=== PATIENT | female | born 1995 | race Caucasian/White ===

== ENCOUNTER 2020-06-16 11:14 | Outpatient (REF) | payer OTHER, SELFPAY ==
[2020-06-16 14:43] LABS: MANUAL DIFF FLAG NO
[2020-06-16 14:48] LABS: Basophils Percent Auto 0.6 % (0-2); Eosinophils Absolute Auto 0.1 X10*3/uL (0.0-0.4); Eosinophils Percent Auto 1.6 % (0-4); Hematocrit 39.3 % (37-47); Imm Gran Abs Auto 0.01 X10*3/uL (0.00-0.03); Imm Gran Pct Auto 0.2 % (0.0-0.4); Lymphocytes Absolute Auto 2.2 X10*3/uL (1.2-4.9); Lymphocytes Percent Auto 42.9 % (20-40); Mean Corpuscular HGB Conc 33.1 g/dl (31.0-35.0); Mean Corpuscular Hemoglobin 30.8 pg (27.0-33.0); Mean Corpuscular Volume 93.1 fL (80-98); Mean Platelet Volume 10.2 fL (9.4-12.3); Monocytes Absolute Auto 0.5 X10*3/uL (0.1-1.2); Monocytes Percent Auto 9.1 % (2-11); Neutrophils Absolute Auto 2.3 X10*3/uL (2.0-8.3); Neutrophils Percent Auto 45.6 % (45-73); Platelet Count 355 X10*3/uL (160-400); Red Blood Count 4.22 X10*6/uL (4.20-5.50); Red Cell Distribution Width 12.3 % (11.0-16.0)
[2020-06-16 15:26] LABS: Alanine Aminotransferase 12 U/L (0-31); Aspartate Amino Transferase 17 U/L (5-31); Cholesterol 182 mg/dL; Glucose Fasting 82 mg/dL (60-99); HDL Cholesterol 77 mg/dL; LDL Cholesterol Calculated 93 mg/dl; Triglycerides 60 mg/dL
[2020-06-16 15:33] LABS: Vitamin D 25-OH Total 11.9 ng/mL (>30)
== END 2020-06-16 11:15 | disposition home or self-care (01) ==
LOC: HO.HMGCLDS 11:14
PROVIDERS: PCP Internal Medicine; Visit Provider Internal Medicine
DX: Z00.00 Encounter for general adult medical examination without abnormal findings (principal)
CPT/HCPCS: 36415; 80061; 82306; 82947; 84450; 84460; 85025

== ENCOUNTER 2021-01-28 07:00 | Outpatient (RCR) | payer OTHER, SELFPAY ==
--- NOTE | 2020-12-22 13:55 | MHC.PT.EP ---
[facility] [place] Office [place] [facility] [place] Office [address] Cec[address]oya [address] [phone] F: [phone] F: [phone] F: [phone] F: [phone] Physical Therapy Plan of Care Date of Evaluation: Date of Surgery: Diagnosis: low back pain Assessment: Patient is a 25 year old R handed female who presents with s/s consistent with low back pain. 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 Patient past medical history includes history of a back injury 7 years ago, R knee scope 13 years ago. Current impairments include pain, ROM, strength, activity tolerance and functional mobility. Functional limitations include decreased ability to walk, stand, transfer, sports, and perform weight bearing activities.. Patient is motivated with good rehab potential. Skilled PT will address impairments and functional limitations in order to achieve goals. Frequency and Duration: The patient will be seen 1x/week for 5 weeks Short Term Goals: I with HEP - 2 weeks Symmetrical AROM rotation with no ERP - 3 weeks Jail Goals: Able to participate in all rec activities pain free - 5 weeks Oswestry 8% or less - 5 weeks Treatment Plan: Modalities to reduce pain, spasms and effusion. Manual therapy to restore motion and function. Therapeutic exercise to improve strength and flexibility. Neuromuscular re-education for posture and balance. Therapeutic activities to return to functional activities of daily living. Electronically signed by: Mohit Geiger, PT Please sign and return to therapist. Thank you for your referral.
--- NOTE | 2021-03-12 10:43 | MHC.PT.DC ---
[facility] [place] Office [place] Office [place] Office [address] Alvaro Loya [address] [phone] F: [phone] F: [phone] F: [phone] F: [phone] Physical Therapy Discharge Report Diagnosis: low back pain Date of Surgery: Date of Evaluation: 12/22/20 Date of Discharge: 01/31/21 Treatments to Date: 4 Cancellations to Date: 0 No Shows to Date: 0 Discharge Status: Independent with HEP Discharge Summary: 01/28/21: pt has met all goals and is I with HEP. asymptomatic overall. we reviewed updated HEP and we will d/c to HEP at this time. Patient is a 25 year old R handed female who presents with s/s consistent with low back pain. 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 Patient past medical history includes history of a back injury 7 years ago, R knee scope 13 years ago. Current impairments include pain, ROM, strength, activity tolerance and functional mobility. Functional limitations include decreased ability to walk, stand, transfer, sports, and perform weight bearing activities.. Patient is motivated with good rehab potential. Skilled PT will address impairments and functional limitations in order to achieve goals. Electronically signed by: Mohit Geiger, PT Please sign and return to therapist. Thank you for your referral.
== END 2021-03-12 10:44 | disposition home or self-care (01) ==
LOC: HO.PTCHIC 07:00
PROVIDERS: PCP Internal Medicine; Visit Provider Internal Medicine
DX: M54.50 Low back pain, unspecified (principal)
CPT/HCPCS: 97110; 97140; 97161

== ENCOUNTER 2021-06-17 10:36 | Outpatient (REF) | payer OTHER, SELFPAY ==
[2021-06-17 14:23] LABS: Alanine Aminotransferase 13 U/L (0-31); Anion Gap 12 (12-20); Aspartate Amino Transferase 12 U/L (5-31); Blood Urea Nitrogen 13 mg/dL (9-16); Carbon Dioxide 25 mmol/L (22-29); Chloride 105 mmol/L (96-108); Cholesterol 210 mg/dL; Estimated Glomerular Filt Rate > 60; Glucose Fasting 85 mg/dL (60-99); HDL Cholesterol 79 mg/dL; LDL Cholesterol Calculated 123 mg/dl; Potassium 5.2 mmol/L (3.3-5.1); Sodium 137 mmol/L (135-145); Triglycerides 40 mg/dL
[2021-06-17 14:35] LABS: Vitamin D 25-OH Total 13.2 ng/mL (>30)
== END 2021-06-17 10:37 | disposition home or self-care (01) ==
LOC: HO.HMGCLDS 10:36
PROVIDERS: PCP Internal Medicine; Visit Provider Internal Medicine
DX: Z00.00 Encounter for general adult medical examination without abnormal findings (principal); E55.9 Vitamin D deficiency, unspecified
CPT/HCPCS: 36415; 80048; 80061; 82306; 84450; 84460

== ENCOUNTER 2021-11-02 09:48 | Outpatient (REF) | payer OTHER, SELFPAY ==
[2021-11-02 11:32] LABS: Potassium 4.6 mmol/L (3.3-5.1)
[2021-11-02 12:06] LABS: Vitamin D 25-OH Total 68.3 ng/mL (>30)
== END 2021-11-02 09:49 | disposition home or self-care (01) ==
LOC: HO.HMGCLDS 09:48
PROVIDERS: PCP Internal Medicine; Visit Provider Internal Medicine
DX: E55.9 Vitamin D deficiency, unspecified (principal); E87.5 Hyperkalemia
CPT/HCPCS: 36415; 82306; 84132

== ENCOUNTER 2021-12-31 09:25 | Outpatient (REF) | payer OTHER, SELFPAY ==
[2021-12-31 10:09] LABS: Binax Internal Control QC Valid; Binax Now Covid-19 Ag Positive (Negative)
== END 2021-12-31 09:26 | disposition home or self-care (01) ==
LOC: HO.HMGCLDS 09:25
PROVIDERS: Visit Provider Nurse Practitioner Family
DX: Z20.822 Contact with and (suspected) exposure to COVID-19 (principal); J06.9 Acute upper respiratory infection, unspecified
CPT/HCPCS: 87811; C9803

== ENCOUNTER 2022-06-21 08:45 | Outpatient (REF) | payer OTHER, SELFPAY ==
[2022-06-21 12:28] LABS: Alanine Aminotransferase 9 U/L (0-31); Aspartate Amino Transferase 12 U/L (5-31); Cholesterol 186 mg/dL; Glucose Fasting 85 mg/dL (60-99); HDL Cholesterol 72 mg/dL; LDL Cholesterol Calculated 102 mg/dl; Triglycerides 63 mg/dL
== END 2022-06-21 08:46 | disposition home or self-care (01) ==
LOC: HO.HMGCLDS 08:45
PROVIDERS: PCP Internal Medicine; Visit Provider Internal Medicine
DX: Z00.00 Encounter for general adult medical examination without abnormal findings (principal)
CPT/HCPCS: 36415; 80061; 82306; 82947; 84450; 84460

== ENCOUNTER 2023-08-31 09:58 | Outpatient (AMB) | payer OTHER, SELFPAY ==
--- NOTE | 2023-08-31 10:42 | MHC.PC.OV ---
Vital Signs 08/31/23 10:48 Height 5 ft 2 in Weight 135 lb BMI 24.7 BP 112/70 Blood Pressure Location Rt brachial Position Sitting Pulse 60 Pulse Source Pulse Oximeter Pulse Oximetry (%) 99 Oxygen Delivery Method Room Air Intake Visit Reasons: Annual PE Intake Note: Pt is here today for her PE: last papsmear 06/30/22 Allergies No Known Allergies Allergy (Verified 08/31/23 11:03) Medication List - Last Reconciled 08/31/23 by Meredith Hoffmann MD levonorgestrel (Liletta) intrauterine multivitamin 1 tab PO DAILY Tobacco use date assessed: 08/31/23 Dental Screening Dental Screen Date: 08/31/23 Did you have a dental visit in the last 12 months?: Yes Did you have a dental problem in the last 6 months where you did not have access to dental care?: Yes Was dental information given to patient?: Patient has dentist HPI Annual PE HPI Details 28-year-old lady here today for physical exam. She sees [facility] in [place] for her routine Pap and pelvic exam, last Pap smear was done [id number] with negative findings. Patient is currently on Liletta IUD inserted in 2019, currently being followed at [facility] Has been few no complaints at present time. [facility]LY [facility], [facility] Medical History Adult general medical exam Vitamin D deficiency History of dog bite History of meniscal tear Fx. left wrist Partial tear of right hamstring Surgical History (Updated 08/31/23 @ 11:21 by Meredith Hoffmann MD) H/O colposcopy with cervical biopsy History of surgery on left wrist Hx of wisdom tooth extraction Hx of arthroscopy Family History Mother Hypertension Substance use disorder Paternal Grandmother Brain cancer Maternal Grandmother Diabetes mellitus Social History Housing: House Alcohol intake: current Patient Tobacco Use Status: Never used Tobacco e-Cigarette/Vaping Use: Never Used service: No Current occupational status: employed Cognitive needs: No Hearing needs: No Vision needs: No Female Reproductive History Menstrual control method: progestin IUCD Date of last pap smear: 06/30/22 Other: Goes to [facility] [place] [facility] for her routine Pap and pelvic Questionnaire PHQ-9 Over the last 2 weeks, how often have you been bothered by any of the following problems? 1. Little interest or pleasure in doing things: not at all 2. Feeling down, depressed, or hopeless: not at all 3. Trouble falling or staying asleep, or sleeping too much: several days 4. Feeling tired or having little energy: not at all 5. Poor appetite or overeating: several days 6. Feeling bad about yourself - or that you are a failure or have let yourself or your family down: not at all 7. Trouble concentrating on things, such as reading the newspaper or watching television: not at all 8. Moving or speaking so slowly that other people could have noticed. Or the opposite - being so fidgety or restless that you have been moving around a lot more than usual: not at all 9. Thoughts that you would be better off or of hurting yourself in some way: not at all Total score: 2 Depression Screening Interpretation: Negative Depression Screening Done: Yes 92222 - PHQ-9 Billing: Yes Source: Developed by Drs. Brayden Stewart, Ai Khan, Misael Gong and colleagues, with an educational manuel from [employer]. Thrive Questionnaire Date Thrive assessed: 08/31/23 I am a: Patient What is your living situation today?: I have a steady place to live Within the past 12 months, did the food you bought not last and you didn't have the money to get more?: Never true Within the past 12 months, did you worry whether your food would run out before you got money to buy more?: Never true Do you have trouble paying for medicines?: No Do you have trouble getting transportation to medical appointments?: No Do you have trouble paying your heating and electricity bill?: No Do you have trouble taking care of your child, family member or friend?: No Do you have trouble with day-to-day activities such as bathing, preparing meals, shopping, managing finances, etc.?: No Are you currently unemployed and looking for a job?: No Are you interested in more education?: No Please select the resources that you would like help with: None THRIVE Score: 0 AUDIT C Alcohol Use Questionnaire (AUDIT-C) 1. How often do you have a drink containing alcohol?: 2-3 times a week 2. How many drinks containing alcohol do you have on a typical day when you are drinking?: 1 or 2 3. How often do you have six or more drinks on one occasion?: Never Total Score: 3 ELIZABETH-7 AMB Questionnaire ELIZABETH-7 Date ELIZABETH - 7 assessed: 08/31/23 Feeling nervous, anxious, or on edge: 1 = Several days Not being able to stop or control worryin = Several days Worrying too much about different things: 1 = Several days Trouble relaxin = Not at all Being so restless that it is hard to sit still: 0 = Not at all Becoming easily annoyed or irritable: 1 = Several days Feeling afraid as if something awful might happen: 0 = Not at all Total ELIZABETH-7 score (0-4 normal; 5-9 mild; 10-14 moderate; 15-21 severe): 4 Source: Developed by Drs. Brayden Stewart, Ai Khan, Misael Gong and colleagues, with an educational manuel from [employer]. ELIZABETH-7 Assessment Billing ELIZABETH-7 Assessment Tool: ELIZABETH-7 Assessment 37298 Review of Systems Const Denies body aches, Denies fatigue, Denies fever(s), Denies headache(s) and Denies weakness Eyes Denies change in vision, Denies eye discharge and Denies itchy eyes ENT Denies dizziness, Denies headache(s), Denies nasal congestion, Denies nasal discharge and Denies sore throat Card Denies chest pain, Denies lightheadedness, Denies palpitations and Denies dyspnea Resp Denies chest congestion, Denies cough, Denies dyspnea and Denies wheezing GI Denies abdominal pain, Denies change in bowel habits and Denies heartburn Details: Occasional postcoital bleeding, followed by OBGYN, negative colposcopy done recently Denies urinary frequency, Denies dysuria and Denies urinary urgency Musc Reports no additional complaints Skin/Breast Denies lesions and Denies rash Neuro Denies dizziness, Denies headache(s) and Denies weakness Psych Reports no additional complaints Endo Denies fatigue, Denies polydipsia, Denies polyuria and Denies palpitations Donovan/Lymph Denies easy bruising Aller/Immun Denies itchy eyes, Denies seasonal rhinorrhea and Denies wheezing Physical exam (Primary Care) Vital Signs: Last Vital Signs Pulse 60 08/31/23 10:48 BP 112/70 08/31/23 10:48 Pulse Ox 99 08/31/23 10:48 Oxygen Delivery Method Room Air 08/31/23 10:48 BMI result Body Mass Index 24.7 Tobacco/Smoking Status: Tobacco use Status Tobacco use date assessed 08/31/23 08/31/23 10:53 Patient Tobacco Use Status Never used Tobacco 08/31/23 10:42 e-Cigarette/Vaping Use Never Used 08/31/23 10:42 PHQ-9: PHQ-9 Score PHQ-9: Total score 3 08/31/23 11:10 Depression Screening Interpretation: Negative Thrive Assessment: Date of Thrive Assessment Date Thrive assessed 08/31/23 08/31/23 10:53 Advance Care Planning discussion: Completed/Scanned Date of discussion: 08/31/23 Who was present: Patient Forms completed: Health Care Proxy Time spent: 16-45 minutes Actual minutes spent: 16 Const General: cooperative, healthy appearing, comfortable and no acute distress Nutritional Appearance: average body habitus Orientation/consciousness: patient oriented x3 HENMT Head: Yes normocephalic and Yes atraumatic Ears: hearing grossly normal bilaterally, TM's normal bilaterally and EAC's normal General nose exam: Normal external nose present Face and sinus: Yes face symmetric Mouth: Normal oral and palatal mucosa present, tongue normal, oropharynx normal and moist mucous membranes Eyes General: appearance normal, both eyes and all related structures Neck Neck: Yes full ROM, Yes no lymphadenopathy and Yes supple Thyroid: Thyroid normal Chest Chest palpation & inspection: normal inspection of the chest Breast/axilla palpation: normal palpation of the breasts and normal palpation of the axillae Resp Effort & Inspection: normal respiratory effort and able to speak in complete sentences Auscultation: clear to auscultation bilaterally Cardio Palpation: normal PMI Rate: regular rate Rhythm: regular rhythm Heart sounds: S1 normal heart sound present, S2 normal heart sound present and no murmurs GI Inspection: Yes normal to inspection Palpation (GI): Soft to palpation, nontender, no guarding and no masses Auscultation: normal bowel sounds General: Yes no CVA tenderness and Yes deferred (utd with her pap / pelvic exam) Back/Spine/Pelvis Back: no CVA tenderness and No back tenderness Cervical Spine: cervical ROM normal Thoracic/Lumbar Spine: thoracic and lumbar spine normal to inspection Skin Other: Hyperpigmented slightly raised lesion on upper back Neuro General: patient oriented x3, gait normal, tone normal, moves all extremities, Normal light touch and pain sensation, no focal motor deficits and CN's II-XI intact bilaterally Extrem General: Yes normal to inspection, Yes full ROM, Yes no joint enlargement, Yes no clubbing, cyanosis or edema, Yes no calf tenderness and Yes normal gait Psych Appearance: grossly normal Mental Status: mental status grossly normal Speech and movement: Normal speech and movement present Affect: normal affect Attitude: cooperative Thought process: Normal thought process present Thought content: Normal thought content present Assessment and Plan Assessment & Plan (1) Adult general medical exam: Code(s): Z00.00 - Encounter for general adult medical examination without abnormal findings Plan: Will check appropriate labs. Continue dental visit every 6 months and regular eye exams, at least every 2 years. Take adequate calcium in diet and vitamin-D 3 at 2000 IU per cap once a day, in addition to weight-bearing exercises to help maintain good muscle tone and weight control. Instructed to do self-breast exam, and recommended to get yearly mammogram, starting at age 40. She is up-to-date with her cervical cancer screening, [facility], last Pap smear was done in June of 2022. She has had COVID vaccines in the past but does not want to get the booster, reminded to get her yearly flu shot, up-to-date with her Td (2) Vitamin D deficiency: Code(s): E55.9 - Vitamin D deficiency, unspecified Plan: Will check vitamin-D level (3) Skin lesion of back: Code(s): L98.9 - Disorder of the skin and subcutaneous tissue, unspecified Plan: Referral to [facility] dermatology ordered (4) Advanced directives, counseling/discussion: Code(s): Z71.89 - Other specified counseling Plan: Initiated the conversation about Advanced Directives. Advanced Directives help patients prepare for current and future decisions about their medical treatment and place of care. Discussed with patient that it is a process where a patients current condition and prognosis are reviewed, their wishes for information regarding their illness are elicited, and likely medical dilemmas are presented and options discussed. Healthcare proxy form completed today The form can be amended as needed, reviewed yearly and make changes as needed Orders: Orders Vitamin D 25-OH Total Today E55.9 - Vitamin D deficiency, unspecified, Z00.00 - Encounter for general adult medical examination without abnormal findings, Z13.1 - Encounter for screening for diabetes mellitus, Z13.220 - Encounter for screening for lipoid disorders Lipid Panel Today E55.9 - Vitamin D deficiency, unspecified, Z00.00 - Encounter for general adult medical examination without abnormal findings, Z13.1 - Encounter for screening for diabetes mellitus, Z13.220 - Encounter for screening for lipoid disorders Basic Metabolic Panel Fasting Today E55.9 - Vitamin D deficiency, unspecified, Z00.00 - Encounter for general adult medical examination without abnormal findings, Z13.1 - Encounter for screening for diabetes mellitus, Z13.220 - Encounter for screening for lipoid disorders Alanine Aminotransferase Today E55.9 - Vitamin D deficiency, unspecified, Z00.00 - Encounter for general adult medical examination without abnormal findings, Z13.1 - Encounter for screening for diabetes mellitus, Z13.220 - Encounter for screening for lipoid disorders Aspartate Amino Transferase Today E55.9 - Vitamin D deficiency, unspecified, Z00.00 - Encounter for general adult medical examination without abnormal findings, Z13.1 - Encounter for screening for diabetes mellitus, Z13.220 - Encounter for screening for lipoid disorders Referrals Dermatology Referral L98.9 - Disorder of the skin and subcutaneous tissue, unspecified, Z12.83 - Encounter for screening for malignant neoplasm of skin Coding Level of Care Code Est Pt Prev Care 18-39y([id number]) Diagnoses Adult general medical exam Z00.00 Vitamin D deficiency E55.9 Skin lesion of back L98.9 Advanced directives, counseling/discussion Z71.89 Additional Codes ELIZABETH-7 Assessment Billing - ELIZABETH-7 Assessment Tool: ELIZABETH-7 Assessment 21055 ([id number]) Vital Signs *Quality* - Advance Care Planning discussion: Completed/Scanned ([id number]) Vital Signs *Quality* - Time spent: 16-45 minutes ([id number])
[2023-08-31 10:48] VITALS: BP 112/70; PULSE 60; O2SAT 99; BMI 24.7
== END 2023-08-31 11:22 | disposition home or self-care (01) ==
PROVIDERS: Visit Provider Internal Medicine
DX: Z00.00 Encounter for general adult medical examination without abnormal findings (principal); E55.9 Vitamin D deficiency, unspecified; L98.9 Disorder of the skin and subcutaneous tissue, unspecified; Z71.89 Other specified counseling
CPT/HCPCS: 1123F; 99395; 99497

== ENCOUNTER 2023-08-31 11:24 | Outpatient (REF) | payer OTHER, SELFPAY ==
[2023-08-31 14:19] LABS: Alanine Aminotransferase 9 U/L (0-31); Anion Gap 12 (12-20); Aspartate Amino Transferase 13 U/L (5-31); Blood Urea Nitrogen 9 mg/dL (9-16); Carbon Dioxide 29 mmol/L (22-29); Chloride 105 mmol/L (96-108); Cholesterol 206 mg/dL (<200); Estimated Glomerular Filt Rate > 60; Glucose Fasting 85 mg/dL (60-99); HDL Cholesterol 77 mg/dL (>40); LDL Cholesterol Calculated 113 mg/dL (<100); Potassium 4.8 mmol/L (3.3-5.1); Sodium 141 mmol/L (135-145); Triglycerides 81 mg/dL (<150)
[2023-08-31 14:36] LABS: Vitamin D 25-OH Total 33.5 ng/mL (>30)
== END 2023-08-31 11:25 | disposition home or self-care (01) ==
LOC: HO.HMGCLDS 11:24
PROVIDERS: PCP Internal Medicine; Visit Provider Internal Medicine
DX: Z00.00 Encounter for general adult medical examination without abnormal findings (principal); E55.9 Vitamin D deficiency, unspecified; Z13.220 Encounter for screening for lipoid disorders; Z13.1 Encounter for screening for diabetes mellitus
CPT/HCPCS: 36415; 80048; 80061; 82306; 84450; 84460